=== PATIENT | female | born 1990 | race Caucasian/White ===

== ENCOUNTER 2021-03-26 05:44 | Inpatient (IN) ==
--- NOTE | 2021-03-19 09:58 | Anesthesiology Consultation ---
Date of Service March 19, 2021 Assessment & Plan (1) Encounter for pre-operative examination: Chart Review Chart Review: manager entry initiated Per nursing assessment 03/19/2021, patient resides and works in [facility]- works as medical equipment sales at [employer]- wears PPE at work. Has been off work x 2 weeks. No known Covid positive exposures or Covid related symptoms. No known Covid infection in the past 90 days. Patient is fully vaccinated for Covid. Preop Covid testing scheduled 03/23/21= will await results History Surgery Operation Date: 03/26/21 08:50 Proposed Procedures p Section (Delivery of Baby through Abdominal Incision) in - J. Toby Poon MD, FACOG Height/Weight Height: 5 ft 4 in Weight: 120.202 kg Allergies Allergy/AdvReac Type Severity Reaction Status Date / Time No Known Allergies Allergy Verified 03/19/21 08:30 Medications Home Medications Medication Instructions Recorded Confirmed Last Taken prenat.vits,sheri,qbu-hrum-pjfio 1 tab PO QAM 09/11/20 03/19/21 02/18/21 aspirin 81 mg tablet,delayed 81 mg PO QAM 10/28/20 03/19/21 02/18/21 release ferrous sulfate 325 mg (65 mg 325 mg PO Q2D 03/19/21 03/19/21 Unknown iron) tablet Past Medical History Medical History Rheumatoid arthritis Past Family History Family History Grandmother (Paternal) Diabetes Thyroid disease Father Hypertension Hypercholesteremia Mother Endometriosis Denies family history of Ovarian cancer Breast cancer Colorectal cancer Past Surgical History Surgical History History of tooth extraction WISDOM TEETH S/P Achilles tendon repair Status post ORIF of fracture of ankle Social History Smoking Status: Never smoker Do You Dip or Chew Tobacco: No Hx Alcohol Use: Yes alcohol intake frequency: a few times a month Alcohol Intake Frequency Comment: NON Hx Substance Use: No substance use type: does not use Lab Results Anesthesia Preop Results Results Anesthesia Widget: Hgb 10.6 g/dL (12.0-16.0) L 02/12/21 Hct 33.6 % (37-47) L 02/12/21
--- NOTE | 2021-03-23 14:13 | History & Physical Report ---
Date of Service March 23, 2021 Assessment & Plan (1) Twin : Plan: section. The patient was counseled to the nature of the procedure including alternatives such as labor. Risks were discussed including bleeding infection injury to bowel bladder ureter vessels and even baby. Deep Vein thrombosis, pulmonary embolus discussed. Breakdown of incision reviewed. Deep vein thrombosis pulmonary embolus hernia and failure of the incision to heal were discussed Patient verbalized understanding of this and was given ample time to ask questions Patient has a twin gestation that is a dichorionic diamniotic twin gestation her growth is good baby babies are both in breech position she has 1 prior vaginal before we discussed that there is an increased risk of complications that twin including hemorrhage we discussed this case was being done in the main or. She had time to ask questions reviewed the consent carefully she will be 37 weeks and 6 days the date of her delivery COVID testing prior History of Present Illness Primary Care Provider: NO PCP Allergies Allergy/AdvReac Type Severity Reaction Status Date / Time No Known Allergies Allergy Verified 03/19/21 08:30 Home Medications Medication Instructions Recorded Confirmed Type prenat.vits,sheri,[id number]-[id number] 1 tab PO QAM 09/11/20 03/19/21 History aspirin 81 mg tablet,delayed 81 mg PO QAM 10/28/20 03/19/21 History release ferrous sulfate 325 mg (65 mg 325 mg PO Q2D 03/19/21 03/19/21 History iron) tablet Patient History Medical History Rheumatoid arthritis Surgical History History of tooth extraction WISDOM TEETH S/P Achilles tendon repair Status post ORIF of fracture of ankle Family History Grandmother (Paternal) Diabetes Thyroid disease Father Hypertension Hypercholesteremia Mother Endometriosis Denies family history of Ovarian cancer Breast cancer Colorectal cancer Social History Smoking Status: Never smoker Second Hand Exposure: No; Hx Alcohol Use: Yes Hx Substance Use: No Preferred Language: Sinhala Communication Ability: Effective Inspector [employer]ated [employer] Required: No Beliefs That Will Affect Care: None marital status: marital status details: Toro Black (29) [phone] Current Living Situation: Spouse and Family Current Living Situation Comment: lives with spouse,son, dog, cat-spouse elmer nging litter current occupational status: employed 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
[2021-03-26] MEDS ORDERED: LACTATED RINGER'S 1,000 ML IV SCH ×3 (05:45→09:20)
[2021-03-26] MEDS ORDERED: ceFAZolin 3,000 MG in DEXTROSE 5% 50 ML IV SCH (06:00)
[2021-03-26] MEDS ORDERED: CITRIC ACID/SODIUM CITRATE 15 ML UDC PO SCH (06:00)
--- NOTE | 2021-03-26 06:19 | History & Physical Bridge Note ---
Date of Service March 26, 2021 History & Physical Bridge Note I have examined the patient, reviewed the History & Physical and in the interval since the performance of the History & Physical I have noted the following changes of clinical significance: no changes noted
[2021-03-26 06:20] LABS: Basophils # (auto) 0.01 K/uL (0-0.2); Basophils % (auto) 0.1 %; Eosinophils # (auto) 0.06 K/uL (0-0.5); Eosinophils % (auto) 0.6 %; Hematocrit (blood only) 33.7 % (37-47); Hemoglobin 10.8 g/dL (12.0-16.0); Immature Granulocytes # (auto) 0.05 K/uL (0.00-0.02); Immature Granulocytes % (auto) 0.5 %; Lymphocytes # (auto) 2.66 K/uL (1.2-3.4); Lymphocytes % (auto) 27.4 %; Mean Corpuscular Hemoglobin 26.9 pg (25-34); Mean Corpuscular Volume 83.8 fL (80-100); Monocytes # (auto) 0.53 K/uL (0.11-0.59); Monocytes % (auto) 5.5 %; Neutrophils # (auto) 6.41 K/uL (1.4-6.5); Neutrophils % (auto) 65.9 %; Platelet Count 217 K/uL (130-400); RDW Standard Deviation 46.1 fL (36.4-46.3); Red Blood Count 4.02 M/uL (4.2-5.4); White Blood Count 9.72 K/uL (4.8-10.8)
[2021-03-26] MEDS ORDERED: ONDANSETRON INJ 2 MG/ML 2 ML VIAL ONE (06:35)
[2021-03-26] MEDS ORDERED: PHENYLEPHRINE 100MCG/ML 5ML SYR ONE (06:35)
[2021-03-26] MEDS ORDERED: OXYTOCIN 10 UNITS/ML 10ML VIAL ONE (06:35)
[2021-03-26] MEDS ORDERED: fentaNYL citrate 100 MCG/2 ML VIAL ONE (06:36)
[2021-03-26] MEDS ORDERED: MoRPHine SULFATE PF 1 MG/ML 10 ML AMP/VIAL ONE (06:36)
[2021-03-26] MEDS ORDERED: MoRPHine SULFATE 2 MG/ML CARP IV PRN (07:51)
[2021-03-26] MEDS ORDERED: diphenhydrAMINE 50 MG/ML VIAL IV PRN (07:51)
[2021-03-26] MEDS ORDERED: LACTATED RINGER'S 500 ML IV PRN (07:51)
[2021-03-26] MEDS ORDERED: NALBUPHINE HCL INJ 10 MG/ML AMP IV PRN (07:51)
[2021-03-26] MEDS ORDERED: MoRPHine SULFATE PF 1 MG/ML 10 ML AMP/VIAL INT SPINAL ONE (07:51)
[2021-03-26] MEDS ORDERED: ONDANSETRON INJ 2 MG/ML 2 ML VIAL IV PRN (07:51)
[2021-03-26] MEDS ORDERED: PROMETHAZINE HCL 6.25 MG in SODIUM CHLORIDE 0.9% 50 ML IV PRN (07:51)
[2021-03-26] MEDS ORDERED: NALOXONE HCL 0.4 MG/1 ML VIAL/CARP IV PRN (07:51)
[2021-03-26] MEDS ORDERED: NALOXONE HCL 1 MG in SODIUM CHLORIDE 0.9% 1000ML 1,000 ML IV PRN (07:51)
[2021-03-26] MEDS ORDERED: ePHEDrine sulfate 50 MG/ML AMP IV PRN (07:51)
[2021-03-26] MEDS ORDERED: NALOXONE HCL 0.08 MG in SYRINGE 1.8 ML IV PRN (07:51)
[2021-03-26] MEDS ORDERED: SODIUM CHLORIDE 0.9% 1000ML 1,000 ML IV SCH (08:00)
[2021-03-26] MEDS ORDERED: NO NARCOTICS OR SEDATIVES SCH (08:00)
[2021-03-26] MEDS ORDERED: DC INTRASPINAL MORPHINE SCH (08:00)
--- NOTE | 2021-03-26 08:38 | Operative Report ---
PG Post Operative Report Pre & Post Diagnosis Operation Date: 03/26/21 07:30 Pre-Op Diagnosis: Dichorionic/Diamniotic Twin Gestation; 37 and 6/7 weeks; Breech/Breech Post-Op Diagnosis: Same; Delivery of a live female child at 0800 and a live female child at 0802 ( Main OR 3) I identified the patient and participated in the time-out.: Yes Procedure Operation Date: 03/26/21 07:30 Actual Procedures p Section (Delivery of Baby through Abdominal Incision) - Roni Poon MD, FACOG Surgeon Roni Poon MD, FACOG Accounts Payable Or Receivable Clerk Dr. Cadet Estimated Blood Loss 700 Findings Consistent with Post-Op Diagnosis Specimens Cord gases and placentas Description of Procedure Regional anesthetic had been given by anesthesia patient was prepped and draped with a leftward tilt preoperative antibiotics had been given in appropriate timing by anesthesiology. Once the prep was allowed to fully dry timeout was performed. Pickups with teeth were used to test the incision area was found to be adequate for incision as the patient did not feel sharp pain. Scalpel was used to make a Pfannenstiel incision on the lower abdomen. We then cut through the subcutaneous fat down to the level of the anterior rectus sheath fascia this was cut in the midline and then extended laterally with the curved Awan scissors. At this stage we then placed 2 Arely clamps on the anterior aspect of the fascia. Using the curved Aawn's we are able to dissect the fascia superiorly away from the rectus muscles. Care was taken to maintain hemostasis. Arely clamps were then placed to the inferior aspect of the anterior sheath of the fascia. Fascia was then dissected away from the rectus muscles inferiorly towards the pubic bone. A Arely was then placed in the midline both inferiorly and superiorly. This was to allow exposure by retraction rectus muscles were in the midline with were then able to cut through the peritoneum and then enter the peritoneal cavity. Opening was enlarged to allow exposure of the peritoneal cavity both superiorly and inferiorly. Once adequate space was obtained a bladder retractor was placed to expose the lower segment Metzenbaums were used to dissect the bladder flap inferiorly away from the uterus. This was done sharply bladder retractor was then repositioned to expose the lower segment of the uterus Fresh scalpel was used to make a low transverse incision on the uterus. Uterus was then entered bluntly with the operators finger, membranes ruptured and the opening was enlarged using the operators fingers bluntly pulling superiorly and inferiorly to allow exposure. Membranes were then ruptured first first baby was in a hardik breech position with flexion of the hips and rotation of the back to anterior and with pressure by the assembler surgical garment the baby was easily delivered with traction no excessive force was used live vigorous female infant straight clamps were put on baby A Cord gas segment obtained baby handed to pediatrics. Attention was then oriented towards baby B baby was in more of a transverse position I was able to grab a foot and then membranes were ruptured after this second foot was grabbed gentle traction on the feet to keep the back anterior and then once this was the case I was able to use a moist cloth as we had done on the first baby to allow traction on the baby baby was delivered without difficulty arms were swept towards the chest and head was delivered easily curved clamps were put on baby B's cord cord cut cord gases obtained cord blood obtained baby B was vigorous handed to pediatrics Placenta removed was removed with traction we ensure the entire placenta was removed with a moist lap sponge into the uterus Uterus was then exteriorized. IV Pitocin had been started by anesthesia tone improved there were no extensions the uterus was then closed using 0 Monocryl in a 2 layer closure the first layer closed in a running locked fashion from left to right and then a second closure from left to right in a running nonlocked fashion. At this stage hemostasis was excellent. Uterus was placed back in the peritoneal cavity with suction irrigation out and inspection of the uterus at this stage revealed excellent hemostasis Retractors were removed urine color was clear at this stage of the case we i nspected the rectus muscles they were hemostatic fascia was closed with 0 Vicryl, subcutaneous fat was irrigated and closed with 3-0 Vicryl skin closed with 4-0 subcuticular Monocryl. Sponge and instrument counts were correct I attest to the content of the Intraoperative Record and any orders documented therein. Any exceptions are noted below. OB Procedure Charges 87794 (NOTE TWINS!)
--- NOTE | 2021-03-26 08:53 | Anesthesiology Progress Note ---
Date of Service March 26, 2021 Anesthesia Post Procedure Vital Signs Vital Signs: Temp Pulse Resp BP Pulse Ox 03/26/21 08:50 86 109/56 L 03/26/21 08:49 99 H 97 03/26/21 06:05 36.5 C 95 H 18 134/77 03/26/21 06:02 95 H 134/77 Transfer of Care Handoff Completed per policy Notes Mental Status: alert / awake / arousable and participated in evaluation Patient Amnestic to Procedure: No Nausea / Vomiting: adequately controlled Pain: adequately controlled Airway Patency, RR, SpO2: stable & adequate BP & HR: stable & adequate Hydration State: stable & adequate Neuraxial Anesthesia: was administered and sensory block is resolving Anesthetic Complications: no major complications apparent and Pt Satisfied with anesthetic care
[2021-03-26 09:07] LABS: Base Excess Cord Venous Blood -4.2 mEq/L (-7.7-1.9); Cord Venous Blood HCO3 22 mmol/L (18.4-26.8); Cord Venous Blood PCO2 46 mmHg (30.4-57.2); Cord Venous Blood PO2 19 mmHg (14.1-43.3); Cord Venous Blood pH 7.31 (7.20-7.44)
[2021-03-26 09:11] LABS: O2 Saturation Cord Venous Bld < 60.0 % (<68)
[2021-03-26 09:14] LABS: Base Excess Cord Arterial Bld -4.6 mEq/L (-9-1.8); CO2 Cord Arterial Blood 51 mmHg (39.1-73.5); HCO3 Cord Arterial Blood 23 mmol/L (19.7-28.5); PO2 Cord Arterial Blood 12 mmHg (4.1-31.7); pH Cord Arterial Blood 7.27 (7.1-7.38)
[2021-03-26 09:15] LABS: Oxygen Sat Cord Arterial Blood < 60.0 % (<60)
[2021-03-26] MEDS ORDERED: MAGNESIUM HYDROXIDE SUSP 30 ML UDC PO PRN (09:20)
[2021-03-26] MEDS ORDERED: DIPHTHERIA/TETANUS/PERTUSSIS 0.5 ML SYR/VIAL IM ONE (09:20)
[2021-03-26] MEDS ORDERED: HYDROCORTISONE ACETATE 25 MG SUPP PR PRN (09:20)
[2021-03-26] MEDS ORDERED: SENNA 8.6 MG TAB PO PRN (09:20)
[2021-03-26] MEDS ORDERED: BENZOCAINE 20% AER SPR 82.5 GM CAN EXT PRN (09:20)
[2021-03-26] MEDS ORDERED: SUPERCREAM 0.870% 15 GM JAR EXT PRN (09:20)
[2021-03-26 10:05] LABS: Base Excess Cord Arterial Bld -3.9 mEq/L (-9-1.8); Base Excess Cord Venous Blood -3.5 mEq/L (-7.7-1.9); CO2 Cord Arterial Blood 55 mmHg (39.1-73.5); Cord Venous Blood HCO3 23 mmol/L (18.4-26.8); Cord Venous Blood PCO2 47 mmHg (30.4-57.2); Cord Venous Blood PO2 23 mmHg (14.1-43.3); Cord Venous Blood pH 7.31 (7.20-7.44); HCO3 Cord Arterial Blood 24 mmol/L (19.7-28.5); PO2 Cord Arterial Blood 12 mmHg (4.1-31.7); pH Cord Arterial Blood 7.26 (7.1-7.38)
[2021-03-26 10:06] LABS: O2 Saturation Cord Venous Bld < 60.0 % (<68); Oxygen Sat Cord Arterial Blood < 60.0 % (<60)
[2021-03-26] MEDS: SIMETHICONE 80 MG CHEW PO SCH ×3 (12:53→20:20)
[2021-03-26] MEDS: OXYTOCIN 30 UNITS in LACTATED RINGER'S 1,000 ML IV SCH ×2 (12:53→22:38)
[2021-03-26] MEDS: KETOROLAC 30 MG/ML VIAL IV PRN ×2 (16:16→22:12)
[2021-03-26] MEDS: DOCUSATE SODIUM 100 MG CAP PO SCH (20:20)
[2021-03-27] MEDS ORDERED: ONDANSETRON INJ 2 MG/ML 2 ML VIAL IV PRN (01:52)
[2021-03-27] MEDS ORDERED: diphenhydrAMINE 50 MG/ML VIAL IV PRN (01:53)
[2021-03-27] MEDS ORDERED: PROMETHAZINE HCL 25 MG in SODIUM CHLORIDE 0.9% 50 ML IV PRN (01:53)
[2021-03-27] MEDS ORDERED: diphenhydrAMINE Capsule 25 MG CAP PO PRN (01:53)
[2021-03-27] MEDS ORDERED: KETOROLAC 30 MG/ML VIAL IV PRN (01:53)
[2021-03-27] MEDS: IBUPROFEN 600 MG TAB PO PRN ×4 (02:17→20:01)
[2021-03-27] MEDS: oxyCODONE/ACETAMINOPHEN 5mg/325mg TAB PO PRN ×4 (02:17→20:02)
--- NOTE | 2021-03-27 06:47 | Obstetrical Progress Note ---
Date of Service <Candy Hirsch MD - Last Filed: 03/27/21 07:51> March 27, 2021 Assessment & Plan <Candy Hirsch MD - Last Filed: 03/27/21 07:51> (1) Encounter for care and examination after delivery: POD 1: stable, routine postoperative management * patient voiding, ambulating without difficulty * pain well controlled on analgesia * tolerating regular diet * breast feeding * reassess d/c readiness tomorrow <Jacinda Cadet DO - Last Filed: 03/27/21 08:14> (1) Encounter for care and examination after delivery: Subjective <Candy Hirsch MD - Last Filed: 03/27/21 07:51> Post Tamra is a 30-year-old who is POD 1 following for twin gestation at 37.6 WGA. She reports feeling well overall this morning. 2/10 pain well managed on Percocet/Motrin. Voiding +. Tolerating meals overnight and able to ambulate some. Improved lochia this morning. Currently . Review of Systems Denies fever, chills, sweats Denies shortness of breath, difficulty breathing, chest pain, palpitations, chest pressure. Denies breast pain. Denies dysuria. Denies headache or changes in vision. Physical Exam <Candy Hirsch MD - Last Filed: 03/27/21 07:51> General: Alert, oriented. No acute distress. Cardiac: Regular rate and rhythm, no murmurs/rubs/gallops. Respiratory: Clear to auscultation bilaterally a/p, no wheezes/rales/rhonchi. No increased work of breathing. Symmetrical chest rise. No respiratory distress. Abdomen: Soft, nontender, nondistended. Bowel sounds present. Uterus: Uterine fundus firm, palpable 5 cm above the umbilicus. Surgical padding clean, dry, and intact. Lower Extremities: No lower extremity edema or swelling. No deep calf pain. Jone's negative bilaterally. Results & Data ([facility]) <Candy Hirsch MD - Last Filed: 03/27/21 07:51> Vital Signs (Past 12 Hours) Vital Signs Temp Pulse Resp BP Pulse Ox Pulse Ox 03/27/21 02:00 36.5 C 90 18 120/80 96 03/27/21 01:30 18 96 03/27/21 00:32 18 95 03/26/21 23:45 36.9 C 89 18 107/72 95 03/26/21 22:30 18 95 03/26/21 21:15 18 96 03/26/21 20:00 36.7 C 96 H 18 125/79 99 99 03/26/21 19:15 18 98 <Jacinda Cadet DO - Last Filed: 03/27/21 08:14> Co-Signing Physician Notes Resident Physician Supervision Note: I interviewed and examined the patient. Discussed with Dr. Hirsch and agree with findings and plan as documented in the note. Any exceptions or clarifications are listed here: POD#1 doing well. Continue routine postop care. Documented By: Jacinda Cadet DO Resident Activity Tracking <Candy Hirsch MD - Last Filed: 03/27/21 07:51> Resident Involvement: Resident Care Provided Care Provided: OB Delivery
[2021-03-27 07:26] LABS: Basophils # (auto) 0.01 K/uL (0-0.2); Basophils % (auto) 0.1 %; Eosinophils # (auto) 0.05 K/uL (0-0.5); Eosinophils % (auto) 0.6 %; Hematocrit (blood only) 29.5 % (37-47); Hemoglobin 9.3 g/dL (12.0-16.0); Immature Granulocytes # (auto) 0.02 K/uL (0.00-0.02); Immature Granulocytes % (auto) 0.2 %; Lymphocytes # (auto) 1.61 K/uL (1.2-3.4); Lymphocytes % (auto) 18.2 %; Mean Corpuscular Hemoglobin 26.6 pg (25-34); Mean Corpuscular Hgb Conc 31.5 g/dL (32-36); Mean Corpuscular Volume 84.5 fL (80-100); Mean Platelet Volume 10.6 fL (7.4-10.4); Monocytes # (auto) 0.42 K/uL (0.11-0.59); Monocytes % (auto) 4.7 %; Neutrophils # (auto) 6.74 K/uL (1.4-6.5); Neutrophils % (auto) 76.2 %; Platelet Count 164 K/uL (130-400); RDW Coefficient of Variation 15.2 % (11.5-14.5); RDW Standard Deviation 47.1 fL (36.4-46.3); Red Blood Count 3.49 M/uL (4.2-5.4); White Blood Count 8.85 K/uL (4.8-10.8)
[2021-03-27] MEDS: SIMETHICONE 80 MG CHEW PO SCH ×4 (08:47→21:18)
[2021-03-27] MEDS: FERROUS SULFATE 325 MG TAB PO SCH (08:47)
[2021-03-27] MEDS: DOCUSATE SODIUM 100 MG CAP PO SCH ×2 (08:47→20:01)
[2021-03-27] MEDS: PRENATAL VITAMIN 1 TAB PO SCH (08:47)
[2021-03-27] MEDS ORDERED: bisacodyL 5 MG TABEC PO SCH (20:00)
[2021-03-28] MEDS: IBUPROFEN 600 MG TAB PO PRN ×5 (02:29→20:34)
[2021-03-28] MEDS: oxyCODONE/ACETAMINOPHEN 5mg/325mg TAB PO PRN ×5 (02:29→20:34)
[2021-03-28 06:37] LABS: Hematocrit (blood only) 29.4 % (37-47); Hemoglobin 9.2 g/dL (12.0-16.0)
[2021-03-28] MEDS: FERROUS SULFATE 325 MG TAB PO SCH (08:01)
[2021-03-28] MEDS: SIMETHICONE 80 MG CHEW PO SCH ×4 (08:01→20:34)
[2021-03-28] MEDS: PRENATAL VITAMIN 1 TAB PO SCH (08:01)
[2021-03-28] MEDS: DOCUSATE SODIUM 100 MG CAP PO SCH ×2 (08:01→20:34)
--- NOTE | 2021-03-28 08:42 | Obstetrical Progress Note ---
Date of Service March 28, 2021 Assessment & Plan (1) Encounter for care and examination after delivery: doing well post op day #2 one twin will need bili lights so will stay until tomorrow. scripts for percocet and motrin sent to pharmacy Subjective Ambulation: ambulating normally Voiding: no voiding problems Passing Gas:: Yes Diet Tolerance:: regular diet Lochia:: Small Feeding Type:: breast feeding pain managed with oral pain meds Review of Systems All systems reviewed & are unremarkable except as noted in HPI & below Physical Exam Constitutional WD/WN, vitals as above Gastrointestinal (Abdomen) incision dry and intact- slight ecchymosis superior to incision. no induration Psychiatric A+Ox3, euthymic affect Results & Data ([facility]) Vital Signs (Past 12 Hours) Vital Signs Temp Pulse Resp BP Pulse Ox 03/28/21 07:25 97.9 F 82 16 140/92 03/28/21 03:35 98.8 F 84 18 137/86 97 03/28/21 00:15 99.0 F 92 H 20 124/85
[2021-03-28] MEDS ORDERED: bisacodyL 10 MG SUPP PR PRN (08:53)
[2021-03-28] MEDS ORDERED: CALCIUM CARBONATE 500 MG CHEWABLE TAB ONE (15:44)
[2021-03-29] MEDS: oxyCODONE/ACETAMINOPHEN 5mg/325mg TAB PO PRN ×3 (01:56→12:44)
[2021-03-29] MEDS: IBUPROFEN 600 MG TAB PO PRN ×3 (01:57→12:43)
--- NOTE | 2021-03-29 06:42 | Obstetrical Progress Note ---
Date of Service <Samuel Truong DO - Last Filed: 03/29/21 07:26> March 29, 2021 Assessment & Plan <Samuel Truong DO - Last Filed: 03/29/21 07:26> (1) Encounter for care and examination after delivery: 30 yo post op day 3 from , doing well. -Continue routine post care. - vital signs reviewed and WNL. (Tmax 37.3) -Blood type O+, GBS -, Rubella Immune -Encourage ambulation, monitor and control pain with Motrin, tylenol PRN. -encourage breast feeding. -D/C home today. <Bhavya Quintero MD, FACOG - Last Filed: 03/29/21 07:45> (1) Encounter for care and examination after delivery: Subjective <Samuel Truong DO - Last Filed: 03/29/21 07:26> Ambulation: ambulating normally Voiding: no voiding problems Passing Gas:: Yes Diet Tolerance:: regular diet Lochia:: Small Feeding Type:: breast feeding Current Pain Level(1-10): 0 Review of Systems Denies fever, chills, sweats Denies shortness of breath, difficulty breathing, chest pain, palpitations, chest pressure. Denies breast pain. Denies dysuria. Denies headache or changes in vision Physical Exam <Samuel Truong DO - Last Filed: 03/29/21 07:26> General: Alert, oriented. No acute distress. Cardiac: Regular rate and rhythm, no murmurs/rubs/gallops. Respiratory: Clear to auscultation bilaterally a/p, no wheezes/rales/rhonchi. No increased work of breathing. Symmetrical chest rise. No respiratory distress. Abdomen: Soft, nontender, nondistended. Bowel sounds present. Skin: Surgical scar clean and healing well. Results & Data ([facility]) <Samuel Truong DO - Last Filed: 03/29/21 07:26> Vital Signs (Past 12 Hours) Vital Signs Temp Pulse Resp BP Pulse Ox 03/28/21 22:48 37.0 C 80 20 148/93 H 98 03/28/21 19:30 36.6 C 87 18 137/87 98 <Bhavya Quintero MD, FACOG - Last Filed: 03/29/21 07:45> Co-Signing Physician Notes Resident Physician Supervision Note: I interviewed and examined the patient. Discussed with Dr. Truong and agree with findings and plan as documented in the note. Any exceptions or clarifications are listed here: [None] Documented By: Bhavya Quintero MD, FACOG Resident Activity Tracking <Samuel Truong DO - Last Filed: 03/29/21 07:26> Resident Involvement: Resident Care Provided Care Provided: Adult Hospital Medicine
[2021-03-29] MEDS: PRENATAL VITAMIN 1 TAB PO SCH (07:58)
[2021-03-29] MEDS: SIMETHICONE 80 MG CHEW PO SCH (07:58)
[2021-03-29] MEDS: DOCUSATE SODIUM 100 MG CAP PO SCH (07:58)
[2021-03-29] MEDS: FERROUS SULFATE 325 MG TAB PO SCH (07:58)
--- NOTE | 2021-04-01 08:14 | Discharge Summary ---
Date of Service April 01, 2021 Admission Exam (Per Admitting) Constitutional WD/WN, vitals as above well developed and well nourished Respiratory normal respiratory effort, lungs clear to auscultation normal respiratory effort Cardiovascular RRR, no murmur, no edema Gastrointestinal (Abdomen) normal bowel sounds, soft, nontender, no hepatosplenomegaly Discharge Data Consultations 03/26/21 05:45 Consult Anesthesiology Stat Procedures Performed Operation Date: 03/26/21 07:30 Actual Procedures p Section (Delivery of Baby through Abdominal Incision) - Roni Poon MD, [facility] (1) Encounter for care and examination after delivery: 30 yo post op day 3 from , doing well. -Continue routine post care. - vital signs reviewed and WNL. (Tmax 37.3) -Blood type O+, GBS -, Rubella Immune -Encourage ambulation, monitor and control pain with Motrin, tylenol PRN. -encourage breast feeding. -D/C home today. Coding Level of Care Code None Diagnoses Encounter for care and examination after delivery Z39.2
== END 2021-03-29 13:50 | disposition home or self-care (01) | DRG 788 ==
LOC: 4S1 → EDSTATUS 08:50 → 4N 12:27 → 4S2 03-27 15:27
DX: O32.2XX2 Maternal care for transverse and oblique lie, fetus 2; Z37.2 Twins, both liveborn; O32.1XX1 Maternal care for breech presentation, fetus 1; O30.043 Twin pregnancy, dichorionic/diamniotic, third trimester; Z3A.38 38 weeks gestation of pregnancy